=== PATIENT | male | born 1970 | race Caucasian/White ===

== ENCOUNTER 2018-06-25 17:14 | Emergency (ER) | payer SELFPAY ==
[~2018-06-25] VITALS: Ht 180.3 cm; Wt 93.2 kg
[~2018-06-25 17:14] MED LIST: GLIPIZIDE XL10 MG PO; METFORMIN1000 MG PO; NAPROSYN250 MG PO; NORCO 325 MG-51 TAB PO
[2018-06-25] MEDS ORDERED: TRAMADOL 50 MG TAB PO (18:35)
[2018-06-25 18:47] VITALS: BP 148/87
== END 2018-06-25 18:45 | disposition home or self-care (01) ==
LOC: ED 17:14
DX: M75.32 Calcific tendinitis of left shoulder (principal); E11.9 Type 2 diabetes mellitus without complications; Z87.891 Personal history of nicotine dependence

== ENCOUNTER → 2020-11-11 | Outpatient (CLI) | payer BC ==
[~2020-11-11] MED LIST changes: +GLUCOPHAGE PO; +TRAMADOL 50 MG TAB PO
[2020-11-11 16:47] LABS: HEMATOCRIT 41.3 % (42.0-52.0); HEMOGLOBIN 13.9 g/dL (13.5-18.0); MEAN PLATELET VOLUME 10.1 fl (7.4-10.4); RED BLOOD COUNT 4.71 M/mm3 (4.20-5.60); RED CELL DISTRIBUTION WIDTH 12.1 % (11.5-14.5); WHITE BLOOD COUNT 8.8 K/mm3 (4.8-10.8)
[2020-11-11 17:12] LABS: ALBUMIN 3.9 g/dL (3.5-5.0)
[2020-11-11 17:13] LABS: POTASSIUM 3.8 mmol/L (3.5-5.1); SODIUM 135 mmol/L (136-145)
[2020-11-11 17:14] LABS: CALCIUM 9.4 mg/dL (8.3-10.5)
[2020-11-11 17:15] LABS: TOTAL PROTEIN 7.5 g/dL (6.4-8.3)
[2020-11-11 17:16] LABS: CARBON DIOXIDE 26 mmol/L (22-29)
[2020-11-11 17:17] LABS: TOTAL BILIRUBIN 0.6 mg/dL (0.2-1.2)
[2020-11-11 17:20] LABS: AST-SGOT 11 U/L (5-34)
[2020-11-11 17:22] LABS: ALT/SGPT 16 U/L (0-55)
[2020-11-11 17:38] LABS: GLUCOSE 401 mg/dL (75-110); TROPONIN-I < 0.03 ng/mL (<0.030)
== END ==
LOC: AMSURD 16:24
PROVIDERS: Nurse Practitioner
DX: R06.02 Shortness of breath (principal)

== ENCOUNTER → 2021-01-05 | Outpatient (CLI) | payer BC ==
[2021-01-05 17:25] VITALS: BP 121/68
[2021-01-05 18:45] VITALS: BP 130/83
== END ==
LOC: AMSURD 16:49
DX: R82.4 Acetonuria (principal)
CPT/HCPCS: J7030

== ENCOUNTER → 2021-04-04 | Outpatient (CLI) | payer BC | LOC: LAB 09:42 | DX: Z12.5 Encounter for screening for malignant neoplasm of prostate (principal); E11.9 Type 2 diabetes mellitus without complications ==

== ENCOUNTER → 2021-04-24 | Outpatient (CLI) | payer BC | LOC: CARDREHAB 08:48 | DX: I10 Essential (primary) hypertension (principal); R07.9 Chest pain, unspecified | CPT/HCPCS: A9500 ==

== ENCOUNTER → 2021-07-06 | Outpatient (CLI) | payer BC | LOC: LAB 15:56 | DX: E11.9 Type 2 diabetes mellitus without complications (principal) ==

== ENCOUNTER → 2021-07-10 | Outpatient (CLI) | payer BC | LOC: LAB 07:50 | DX: E11.9 Type 2 diabetes mellitus without complications (principal); N52.39 Other and unspecified postprocedural erectile dysfunction ==

== ENCOUNTER → 2021-10-15 | Outpatient (CLI) | payer BC | LOC: LAB 15:29 | DX: E11.9 Type 2 diabetes mellitus without complications (principal); N52.39 Other and unspecified postprocedural erectile dysfunction ==

== ENCOUNTER 2023-10-18 12:28 | Emergency (ER) | payer OTHER ==
[~2023-10-18] VITALS: Ht 180.3 cm; Wt 95.5 kg
[~2023-10-18 12:28] MED LIST changes: -DIABETA 5MG5 MG/TAB PO; -POTASSIUM CHLO20 ME3 PO
[2023-10-18] MEDS ORDERED: DIABETA 5MG5 MG/TAB PO (12:39)
[2023-10-18 12:58] LABS: BASO # 0.04 K/mm3 (0.02-0.10); EOS # 0.19 K/mm3 (0.04-0.40); EOS % 2.2 % (0.0-4.0); HEMATOCRIT 31.5 % (42.0-52.0); HEMOGLOBIN 10.8 g/dL (13.5-18.0); LYMPH# 1.87 K/mm3 (1.50-4.00); MEAN CELL VOLUME 85 fl (78-100); MEAN CORPUSCULAR HEMOGLOBIN 29 pg (27-31); MEAN CORPUSCULAR HGB CONC 34 g/dL (33-37); MONO # 0.64 K/mm3 (0.20-0.80); NEU # 5.91 K/mm3 (1.40-6.50); PLATELET COUNT 208 K/mm3 (130-400); RED BLOOD COUNT 3.72 M/mm3 (4.20-5.60); RED CELL DISTRIBUTION WIDTH 12.4 % (11.5-14.5); WHITE BLOOD COUNT 8.7 K/mm3 (4.8-10.8)
[2023-10-18 13:05] LABS: ALBUMIN 2.6 g/dL (3.5-5.0)
[2023-10-18 13:07] LABS: CALCIUM 8.3 mg/dL (8.3-10.5)
[2023-10-18 13:08] LABS: TOTAL PROTEIN 5.5 g/dL (6.4-8.3)
[2023-10-18 13:10] LABS: TOTAL BILIRUBIN 0.2 mg/dL (0.2-1.2)
[2023-10-18 13:14] LABS: MAGNESIUM 1.49 mg/dL (1.60-2.60)
[2023-10-18] MEDS ORDERED: Dextrose/Magnesium Sulfate 100 ML IV ONE (13:30)
[2023-10-18] MEDS ORDERED: Potassium Chloride 100 ML IV SCH (13:45)
[2023-10-18] MEDS ORDERED: NS 1,000 ML IV SCH (13:45)
[2023-10-18] MEDS ORDERED: NS 500 ML IV SCH (14:00)
[2023-10-18] MEDS ORDERED: Lisinopril 20 MG TAB PO ONE (15:45)
[2023-10-18 16:16] LABS: ALBUMIN 2.6 g/dL (3.5-5.0)
[2023-10-18 16:18] LABS: CALCIUM 8.2 mg/dL (8.3-10.5)
[2023-10-18 16:19] LABS: TOTAL PROTEIN 5.4 g/dL (6.4-8.3)
[2023-10-18 16:21] LABS: TOTAL BILIRUBIN 0.3 mg/dL (0.2-1.2)
[2023-10-18 16:25] LABS: MAGNESIUM 1.81 mg/dL (1.60-2.60)
[2023-10-18] MEDS ORDERED: NIFEdipine 10 MG CAP PO ONE (16:45)
[2023-10-18] MEDS ORDERED: POTASSIUM CHLO20 ME3 PO (17:00)
[2023-10-18 17:51] VITALS: BP 206/110
== END 2023-10-18 17:05 | disposition left against medical advice (07) ==
LOC: ED 12:28
PROVIDERS: Physician Assistant
DX: E87.6 Hypokalemia (principal); I10 Essential (primary) hypertension; E11.65 Type 2 diabetes mellitus with hyperglycemia; E11.9 Type 2 diabetes mellitus without complications; E83.42 Hypomagnesemia; R94.4 Abnormal results of kidney function studies; Z91.199 Patient's noncompliance with other medical treatment and regimen due to unspecified reason
CPT/HCPCS: J3475; J3480; J7030

== ENCOUNTER → 2023-10-18 | Outpatient (CLI) | payer OTHER ==
[~2023-10-18] MED LIST changes: +DIABETA 5MG5 MG/TAB PO; +POTASSIUM CHLO20 ME3 PO
[2023-10-18 08:44] LABS: CALCIUM 8.5 mg/dL (8.3-10.5)
== END ==
LOC: LAB 08:19
PROVIDERS: Family Medicine
DX: I10 Essential (primary) hypertension (principal); E78.5 Hyperlipidemia, unspecified; E11.9 Type 2 diabetes mellitus without complications; E78.2 Mixed hyperlipidemia; F52.21 Male erectile disorder; R80.9 Proteinuria, unspecified

== ENCOUNTER 2024-03-05 18:38 | Emergency (ER) | payer OTHER ==
[~2024-03-05] VITALS: Ht 180.3 cm; Wt 95.5 kg
[~2024-03-05 18:38] MED LIST changes: +DIABETA 5MG5 MG/TAB PO; +POTASSIUM CHLO20 ME3 PO
[2024-03-05] MEDS ORDERED: NIFEdipine 10 MG CAP PO ONE (19:30)
[2024-03-05] MEDS ORDERED: Lisinopril 20 MG TAB PO ONE (19:30)
[2024-03-05] MEDS ORDERED: AMOXICILLIN AND1 TA2 PO (21:07)
[2024-03-05] MEDS ORDERED: Amoxicillin/Clavulanate K+ 875/125 MG TAB PO ONE (21:15)
[2024-03-05 21:24] VITALS: BP 132/66
== END 2024-03-05 21:24 | disposition home or self-care (01) ==
LOC: ED 18:38
DX: S01.511A Laceration without foreign body of lip, initial encounter (principal); I10 Essential (primary) hypertension; Z79.899 Other long term (current) drug therapy; Z23 Encounter for immunization; W01.198A Fall on same level from slipping, tripping and stumbling with subsequent striking against other object, initial encounter; Y93.01 Activity, walking, marching and hiking; Y92.512 Supermarket, store or market as the place of occurrence of the external cause
CPT/HCPCS: 90715

== ENCOUNTER → 2024-05-12 | Outpatient (CLI) | payer OTHER ==
[~2024-05-12] MED LIST changes: +AMOXICILLIN AND1 TA2 PO
[2024-05-12 18:05] LABS: BASO # 0.03 K/mm3 (0.02-0.10); EOS # 0.19 K/mm3 (0.04-0.40); EOS % 3.4 % (0.0-4.0); HEMATOCRIT 37.6 % (42.0-52.0); HEMOGLOBIN 12.4 g/dL (13.5-18.0); LYMPH# 1.26 K/mm3 (1.50-4.00); MEAN CELL VOLUME 90 fl (78-100); MEAN CORPUSCULAR HEMOGLOBIN 30 pg (27-31); MEAN CORPUSCULAR HGB CONC 33 g/dL (33-37); MEAN PLATELET VOLUME 9.9 fl (7.4-10.4); MONO # 0.52 K/mm3 (0.20-0.80); NEU # 3.67 K/mm3 (1.40-6.50); PLATELET COUNT 239 K/mm3 (130-400); RED BLOOD COUNT 4.17 M/mm3 (4.20-5.60); RED CELL DISTRIBUTION WIDTH 14.3 % (11.5-14.5); WHITE BLOOD COUNT 5.7 K/mm3 (4.8-10.8)
[2024-05-12 18:12] LABS: ALBUMIN 2.5 g/dL (3.5-5.0)
[2024-05-12 18:13] LABS: CALCIUM 8.7 mg/dL (8.3-10.5)
[2024-05-12 18:15] LABS: TOTAL PROTEIN 5.9 g/dL (6.4-8.3)
[2024-05-12 18:16] LABS: TOTAL BILIRUBIN 0.2 mg/dL (0.2-1.2)
[2024-05-12 18:31] LABS: TROPONIN-I 0.155 ng/mL (0.00-0.033)
== END ==
LOC: LAB 17:43
PROVIDERS: Nurse Practitioner Family
DX: R06.09 Other forms of dyspnea (principal)

== ENCOUNTER → 2024-05-25 | Outpatient (CLI) | payer OTHER | LOC: LAB 14:33 | PROVIDERS: Family Medicine | DX: I50.32 Chronic diastolic (congestive) heart failure (principal) ==

== ENCOUNTER 2024-06-05 13:30 | Observation (INO) | payer OTHER ==
[~2024-06-05] VITALS: Wt 104.7 kg
[2024-06-05] MEDS ORDERED: GOOD SENSE ASPI81 M1 PO (14:12)
[2024-06-05 14:13] LABS: BASO # 0.03 K/mm3 (0.02-0.10); EOS # 0.14 K/mm3 (0.04-0.40); EOS % 3.7 % (0.0-4.0); HEMATOCRIT 35.7 % (42.0-52.0); HEMOGLOBIN 11.5 g/dL (13.5-18.0); LYMPH# 0.69 K/mm3 (1.50-4.00); MEAN CELL VOLUME 92 fl (78-100); MEAN CORPUSCULAR HEMOGLOBIN 30 pg (27-31); MEAN CORPUSCULAR HGB CONC 32 g/dL (33-37); MEAN PLATELET VOLUME 11.4 fl (7.4-10.4); MONO # 0.39 K/mm3 (0.20-0.80); NEU # 2.56 K/mm3 (1.40-6.50); PLATELET COUNT 135 K/mm3 (130-400); RED CELL DISTRIBUTION WIDTH 15.9 % (11.5-14.5); WHITE BLOOD COUNT 3.8 K/mm3 (4.8-10.8)
[2024-06-05] MEDS ORDERED: ATORVASTATIN CA40 MG PO (14:13)
[2024-06-05] MEDS ORDERED: COREG 6.256.25 MG/TA PO (14:13)
[2024-06-05] MEDS ORDERED: CLOPIDOGREL PO (14:14)
[2024-06-05] MEDS ORDERED: JARDIANCE10 MG PO (14:14)
[2024-06-05] MEDS ORDERED: LASIX40 M1 PO (14:16)
[2024-06-05] MEDS ORDERED: GLIMEPIRIDE4 MG PO (14:17)
[2024-06-05] MEDS ORDERED: COZAAR 50MG50 MG/TAB PO (14:17)
[2024-06-05 14:20] LABS: ALBUMIN 2.8 g/dL (3.5-5.0)
[2024-06-05 14:22] LABS: CALCIUM 8.6 mg/dL (8.3-10.5)
[2024-06-05 14:25] LABS: TOTAL BILIRUBIN 0.2 mg/dL (0.2-1.2)
[2024-06-05 14:30] LABS: PARTIAL THROMBOPLASTIN TIME 36.2 SECONDS (21.0-32.0); PROTHROMBIN TIME 10.9 SECONDS (9.0-12.0)
[2024-06-05 14:38] LABS: TROPONIN-I 0.061 ng/mL (0.00-0.033)
[2024-06-05 15:14] LABS: URINE APPEARANCE CLEAR (CLEAR); URINE COLOR YELLOW (YELLOW)
[2024-06-05 15:27] LABS: PH-URINE 5.5 (5.0 - 8.0); URINE BILIRUBIN NEGATIVE (NEGATIVE); URINE BLOOD 2+ (NEGATIVE); URINE GLUCOSE 2+ (NEGATIVE); URINE KETONE NEGATIVE (NEGATIVE); URINE LEUKOCYTE ESTERASE NEGATIVE (NEGATIVE); URINE MUCUS PRESENT (NOT PRESENT); URINE NITRATE NEGATIVE (NEGATIVE); URINE PROTEIN(semi-quant) 3+ (NEGATIVE)
[2024-06-05] MEDS ORDERED: hydrALAZINE 20 MG/ML 1 ML VIAL IV ONE (18:30)
[2024-06-05] MEDS ORDERED: Acetaminophen 325 MG TAB PO PRN (19:45)
[2024-06-05 20:00] VITALS: BP 190/96
[2024-06-05] MEDS ORDERED: Dextrose (Glucose) 15 GM (4 x 3.75 GM) Chewable TAB PACK PO PRN (20:00)
[2024-06-05] MEDS ORDERED: Glucagon 1 MG VIAL IM PRN (20:00)
[2024-06-05] MEDS ORDERED: Dextrose 50% Water 25 GM/50 ML SYRINGE IV PRN (20:00)
[2024-06-05 23:00] VITALS: BP 178/76
[2024-06-06] VITALS (8 sets, daily range): BP systolic 158–204; BP diastolic 52–101
[2024-06-06 01:50] LABS: TROPONIN-I 0.065 ng/mL (0.00-0.033)
--- NOTE | 2024-06-06 01:53 | NUR ---
PROVIDER VU FORDE NOTIFIED OF TROPONIN, NO NEW ORDERS AT THIS TIME
[2024-06-06 07:19] LABS: BASO # 0.02 K/mm3 (0.02-0.10); EOS # 0.12 K/mm3 (0.04-0.40); EOS % 4.2 % (0.0-4.0); HEMATOCRIT 34.2 % (42.0-52.0); HEMOGLOBIN 10.9 g/dL (13.5-18.0); LYMPH# 0.68 K/mm3 (1.50-4.00); MEAN CELL VOLUME 92 fl (78-100); MEAN CORPUSCULAR HEMOGLOBIN 29 pg (27-31); MEAN CORPUSCULAR HGB CONC 32 g/dL (33-37); MEAN PLATELET VOLUME 11.7 fl (7.4-10.4); NEU # 1.76 K/mm3 (1.40-6.50); PLATELET COUNT 123 K/mm3 (130-400); RED BLOOD COUNT 3.71 M/mm3 (4.20-5.60); WHITE BLOOD COUNT 2.9 K/mm3 (4.8-10.8)
[2024-06-06 07:26] LABS: CALCIUM 8.3 mg/dL (8.3-10.5)
[2024-06-06 08:04] LABS: TROPONIN-I 0.06 ng/mL (0.00-0.033)
[2024-06-06] MEDS ORDERED: Empagliflozin 10 MG TAB PO SCH (09:00)
[2024-06-06] MEDS ORDERED: Furosemide 40 MG TAB PO SCH (09:00)
[2024-06-06] MEDS ORDERED: Glimepiride 2 MG TAB PO SCH (09:00)
[2024-06-06] MEDS ORDERED: Losartan 50 MG TAB PO SCH (09:00)
[2024-06-06] MEDS ORDERED: Clopidogrel 75 MG TAB PO SCH (09:00)
--- NOTE | 2024-06-06 19:32 | NUR ---
Sitting up in recliner. EXECUTIVE CONSULTANT in to obtain V/S. B/P . Recheck . Manual B/P obtained and is . Denies H/A, or blurred, vision. Ivan Mccray notified. NNO at this time.
--- NOTE | 2024-06-06 19:36 | NUR ---
Order received for IV hydralazine, RN notified.
[2024-06-06] MEDS ORDERED: hydrALAZINE 20 MG/ML 1 ML VIAL IV ONE (19:45)
--- NOTE | 2024-06-06 19:52 | NUR ---
Assessment completed. Denies pain. Lungs CTA, HR meredith at 52. Blood pressure as reported. States as noticed a "change" to his voice and that he seems to have trouble finding his words at times. Is A/O x4 upon assessment. Will notify provider. Continues to have bilateral swelling 2+, reports groin swelling down and swelling improved from yesterday. Denies wants or needs at this time. Chair alarm on. Call light in reach.
--- NOTE | 2024-06-06 20:40 | NUR ---
Repeat B/P after IV Hydralazine is 167/79.
--- NOTE | 2024-06-06 22:09 | NUR ---
EKG done per order received this AM.
--- NOTE | 2024-06-07 01:37 | NUR ---
Resting quietly. HR in the 50's per TELE. Calls for assist to BR PRN.
[2024-06-07 03:15] VITALS: BP 164/75
--- NOTE | 2024-06-07 07:00 | NUR ---
REPORT RECEIVED FROM SANTANA DELANEY
--- NOTE | 2024-06-07 07:05 | NUR ---
Report to [facility] REWORKER.
--- NOTE | 2024-06-07 07:37 | NUR ---
PCT REPORTED PATIENT BLOOD GLUCOSE AT 46. PATIENT GIVEN ORANGE JUICE AT THIS TIME.
[2024-06-07 07:50] VITALS: BP 166/82
--- NOTE | 2024-06-07 08:00 | NUR ---
THIS NURSE RECHECKED GLUCOSE, 48. DEXTROSE GIVEN AT THIS TIME. BREAKFAST TRAY GIVEN TO PATIENT WELL.
--- NOTE | 2024-06-07 09:00 | NUR ---
PATIENT GLUCOSE RECHECKED - 120
[2024-06-07 11:19] VITALS: BP 189/94
--- NOTE | 2024-06-07 11:30 | NUR ---
PATIENT RESTING IN BED WITH EYES OPEN. DENIES NEEDS OR COMPLAINTS AT THIS TIME. BLOOD PRESSURE ELEVATED PER PCT. PATIENT IS ASYMPTOMATIC AT THIS TIME.
[2024-06-07 15:10] VITALS: BP 195/89
[2024-06-07] MEDS ORDERED: hydrALAZINE 20 MG/ML 1 ML VIAL IV ONE (15:30)
--- NOTE | 2024-06-07 18:55 | NUR ---
REPORT GIVEN TO SANTANA DELANEY
[2024-06-07] MEDS ORDERED: Ondansetron 4 MG/2 ML VIAL IV PRN (19:15)
--- NOTE | 2024-06-07 19:23 | NUR ---
Report received from Barbie CIFUENTES. Patient resting supine in bed watching [employer] football game. A/O x4. Initially denies pain then later states he has a H/A frontal 10/20. State has "a little" nausea when asked. Zofran IV and PO Tylenol given at this time. HR 63 per TELE. HRR. INT patent to LFA. Continues with Swelling from toes to abdomen. Up to BR with SBA and walker.
[2024-06-07 19:24] VITALS: BP 187/86
[2024-06-07 23:28] VITALS: BP 163/73
--- NOTE | 2024-06-08 03:08 | NUR ---
Oxygen levels between 87-89% on RA. No SOA noted. No change in lung sounds noted. Unable to obtain a reading above 89% on RA with raising the HOB, taking deep breaths or trying various fingers. Fingers are warm to touch. Applied O2 at 2 L/NC and SAO2 promptly increased to 94%.
[2024-06-08 03:18] VITALS: BP 157/70
--- NOTE | 2024-06-08 04:08 | NUR ---
Dr. Ye notified of SAO2 and of applying oxygen at 0300 at 2L/NC
[2024-06-08 06:07] LABS: ALBUMIN 2.6 g/dL (3.5-5.0); BASO # 0.02 K/mm3 (0.02-0.10); EOS # 0.15 K/mm3 (0.04-0.40); EOS % 3.5 % (0.0-4.0); HEMATOCRIT 33.5 % (42.0-52.0); HEMOGLOBIN 10.4 g/dL (13.5-18.0); LYMPH# 0.84 K/mm3 (1.50-4.00); MEAN CELL VOLUME 95 fl (78-100); MEAN CORPUSCULAR HEMOGLOBIN 29 pg (27-31); MEAN CORPUSCULAR HGB CONC 31 g/dL (33-37); MEAN PLATELET VOLUME 11.9 fl (7.4-10.4); MONO # 0.47 K/mm3 (0.20-0.80); NEU # 2.84 K/mm3 (1.40-6.50); PLATELET COUNT 120 K/mm3 (130-400); RED BLOOD COUNT 3.54 M/mm3 (4.20-5.60); RED CELL DISTRIBUTION WIDTH 16.7 % (11.5-14.5); WHITE BLOOD COUNT 4.3 K/mm3 (4.8-10.8)
[2024-06-08 06:09] LABS: CALCIUM 8.4 mg/dL (8.3-10.5)
[2024-06-08 06:10] LABS: TOTAL PROTEIN 5.4 g/dL (6.4-8.3)
[2024-06-08 06:50] LABS: TOTAL BILIRUBIN 0.2 mg/dL (0.2-1.2)
--- NOTE | 2024-06-08 06:50 | NUR ---
Critical labs reported to Dr. Ye. BNP 1582. Chloride 117.
--- NOTE | 2024-06-08 07:02 | NUR ---
Report to Lizet Alarcon RN
[2024-06-08 07:10] VITALS: BP 150/78
[2024-06-08] MEDS ORDERED: Furosemide 40 MG TAB PO SCH ×2 (09:00)
--- NOTE | 2024-06-08 09:49 | NUR ---
0725- PCT REPORTED BLOOD SUGAR OF 58. PT GIVEN 4 OZ ORANGE JUICE. JOSE PUTNAM APRN NOTIFIED OF LOW SUGAR. 0805- RECHECK WAS BLOOD SUGAR OF 52. 4 OZ APPLE JUICE GIVEN AND BREAKFAST TRAY GIVEN. 0825 PT HAD FINISHED BREAKFAST TRAY AND RECHECK WAS 66. 0833 JOSE LOBATO NOTIFIED AND ORDER GIVEN TO GIVE GLUCAGON TABLETS. 0845- GLUCAGON GIVEN. 0910- RECHECK WAS 129. JOSE NOTIFIED.
[2024-06-08 10:57] VITALS: BP 182/82
[2024-06-08] MEDS ORDERED: LEVOTHYROXINE0.05 MG PO (11:54)
[2024-06-08 14:09] VITALS: BP 199/78
--- NOTE | 2024-06-08 15:10 | NUR ---
IV AND SCHOOL ADMINISTRATOR REMOVED. DISCHARGE INSTRUCTIONS AND MEDICATIONS DISCUSSED WITH PATIENT, ALL QUESTIONS ANSWERED. NEW REFERRAL INFORMATION HAS BEEN FAXED TO ENDOCRINOLOGY. FOLLOW UP HAS BEEN MADE WITH PCP. CARDIOLOGY WILL CALL PATIENT TO SCHEDULE FOLLOW UP. NEW MEDICATION HAS BEEN SENT TO [facility]. PATIENT MEETS ALL DISCHARGE CRITERIA. PT WHEELED OUT TO PRIVATE VEHICLE.
== END 2024-06-08 15:26 | disposition home or self-care (01) ==
LOC: ED 13:30 → MED/SURG 19:30
PROVIDERS: Family Medicine; Nurse Practitioner Family; ADMIT Internal Medicine
DX: R00.1 Bradycardia, unspecified (principal); E11.649 Type 2 diabetes mellitus with hypoglycemia without coma; I13.0 Hypertensive heart and chronic kidney disease with heart failure and stage 1 through stage 4 chronic kidney disease, or unspecified chronic kidney disease; I50.9 Heart failure, unspecified; E11.22 Type 2 diabetes mellitus with diabetic chronic kidney disease; N18.9 Chronic kidney disease, unspecified; E78.00 Pure hypercholesterolemia, unspecified; E03.8 Other specified hypothyroidism; Z79.82 Long term (current) use of aspirin; Z79.84 Long term (current) use of oral hypoglycemic drugs; Z79.899 Other long term (current) drug therapy; Z79.02 Long term (current) use of antithrombotics/antiplatelets
CPT/HCPCS: A9270; G0378; J0360; J1650; J2405

== ENCOUNTER 2024-07-11 14:00 | Outpatient (RCR) | payer OTHER ==
[~2024-07-11 14:00] MED LIST changes: +ATORVASTATIN CA40 MG PO; +CARVEDILOL6.25 MG PO; +CLOPIDOGREL PO; +COREG 6.256.25 MG/TA PO; +COZAAR 50MG50 MG/TAB PO; +GLIMEPIRIDE1 MG PO; +GLIMEPIRIDE4 MG PO; +GOOD SENSE ASPI81 M1 PO; +JARDIANCE10 MG PO; +LASIX40 M1 PO; +LEVOTHYROXINE0.05 MG PO; +LOSARTAN POTAS100 MG PO; +TRULICITY1.5 MG/0.5 SC
== END 2024-07-13 ==
LOC: PT
DX: R26.81 Unsteadiness on feet (principal); R53.1 Weakness

== ENCOUNTER 2024-07-11 14:09 | Outpatient (RCR) | payer OTHER | END 2024-07-13 | disposition home or self-care (01) | LOC: OT | DX: R26.81 Unsteadiness on feet (principal); R53.1 Weakness ==

== ENCOUNTER → 2024-07-18 | Outpatient (CLI) | payer OTHER ==
[~2024-07-18] MED LIST changes: +MUPIROCIN2% TP; +TIZANIDINE2 MG PO; +VOLTAREN ARTHRI20 GM TP
[2024-07-18 15:44] LABS: BASO # 0.01 K/mm3 (0.02-0.10); EOS # 0.19 K/mm3 (0.04-0.40); EOS % 5.9 % (0.0-4.0); HEMATOCRIT 27.1 % (42.0-52.0); HEMOGLOBIN 8.4 g/dL (13.5-18.0); LYMPH# 0.77 K/mm3 (1.50-4.00); MEAN CELL VOLUME 93 fl (78-100); MEAN CORPUSCULAR HEMOGLOBIN 29 pg (27-31); MEAN CORPUSCULAR HGB CONC 31 g/dL (33-37); MEAN PLATELET VOLUME 10.9 fl (7.4-10.4); MONO # 0.33 K/mm3 (0.20-0.80); NEU # 1.91 K/mm3 (1.40-6.50); PLATELET COUNT 161 K/mm3 (130-400); RED BLOOD COUNT 2.92 M/mm3 (4.20-5.60); RED CELL DISTRIBUTION WIDTH 16.7 % (11.5-14.5); WHITE BLOOD COUNT 3.2 K/mm3 (4.8-10.8)
[2024-07-18 15:51] LABS: CALCIUM 8.7 mg/dL (8.3-10.5)
[2024-07-18 15:55] LABS: PROTHROMBIN TIME 10.3 SECONDS (9.0-12.0)
== END ==
LOC: LAB 15:31
PROVIDERS: Family Medicine
DX: I10 Essential (primary) hypertension (principal); D61.818 Other pancytopenia; E78.5 Hyperlipidemia, unspecified; E11.9 Type 2 diabetes mellitus without complications; R79.1 Abnormal coagulation profile

== ENCOUNTER 2024-07-20 15:10 | Emergency (ER) | payer OTHER ==
[~2024-07-20] VITALS: Ht 157.5 cm; Wt 90.9 kg
[~2024-07-20 15:10] MED LIST changes: -MUPIROCIN2% TP; -TIZANIDINE2 MG PO; -VOLTAREN ARTHRI20 GM TP
[2024-07-20 16:48] VITALS: BP 188/86
[2024-07-20] MEDS ORDERED: TIZANIDINE2 MG PO (16:57)
[2024-07-20] MEDS ORDERED: VOLTAREN ARTHRI20 GM TP (16:57)
[2024-07-20] MEDS ORDERED: MUPIROCIN2% TP (16:57)
[2024-07-20] MEDS ORDERED: tiZANidine 4 MG TABLET PO ONE (17:00)
[2024-07-20] MEDS ORDERED: Tdap Vaccine 0.5 ML SYRINGE IM ONE (17:00)
== END 2024-07-20 17:08 | disposition home or self-care (01) ==
LOC: ED 15:10
DX: S01.511A Laceration without foreign body of lip, initial encounter (principal); S59.912A Unspecified injury of left forearm, initial encounter; S59.911A Unspecified injury of right forearm, initial encounter; E66.9 Obesity, unspecified; Z68.36 Body mass index [BMI] 36.0-36.9, adult; Z79.82 Long term (current) use of aspirin; W01.198A Fall on same level from slipping, tripping and stumbling with subsequent striking against other object, initial encounter; Z79.02 Long term (current) use of antithrombotics/antiplatelets
CPT/HCPCS: 90715